=== PATIENT | female | born 2000 | race American Indian/Alaskan Native ===

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

== ENCOUNTER 2021-01-14 17:37 | Emergency (ER) | payer MEDICAID, OTHER | END 2021-01-14 18:30 | disposition left against medical advice (07) | LOC: ED 17:37 | DX: R21 Rash and other nonspecific skin eruption (principal); Z53.21 Procedure and treatment not carried out due to patient leaving prior to being seen by health care provider ==

== ENCOUNTER 2021-01-15 06:00 | Emergency (ER) | payer MEDICAID ==
[2021-01-15 07:24] LABS: Bilirubin,Urine NEG (Negative); Blood,Urine SM (Negative); Color,Urine Yellow (Yellow); Mucus,Urine 3+ /HPF
[2021-01-15 07:59] LABS: Basophils % (Auto) 0.7 % (0.0-1.8); Eosinophils # (Auto) 0.2 K/mm3 (0.0-0.4); Eosinophils % (Auto) 3.7 % (0.0-4.3); Hemoglobin 11.4 gm/dl (10.1-14.3); Lymphocytes # (Auto) 1.6 K/mm3 (1.2-5.4); Mean Corpuscular HGB Conc 33 % (30-34); Mean Corpuscular Volume 83 fl (79-97); Monocytes # (Auto) 0.7 K/mm3 (0.0-0.8); Monocytes % (Auto) 11.8 % (0.0-7.3); Platelet Count 400 K/mm3 (140-440); Red Cell Distribution Width 13.2 % (13.2-15.2)
[2021-01-15 08:34] LABS: Alanine Aminotransferase 7 units/L (7-56); Albumin 4.1 g/dL (3.9-5); Blood Urea Nitrogen 8 mg/dL (7-17); Calcium 9.2 mg/dL (8.4-10.2); Hemolysis Index 0
[2021-01-15 08:53] LABS: BUN/Creatinine Ratio 13
[2021-01-15] MEDS ORDERED: KETOROLAC 30 MG/1 ML INJ IV ONE (09:34)
--- NOTE | 2021-01-15 09:35 | Emergency Department Report ---
ED General Adult HPI - General Chief complaint: Abdominal Pain Stated complaint: RIGHT SIDE PAIN Time Seen by Provider: 01/15/21 09:24 Source: patient Mode of arrival: Ambulatory Limitations: No Limitations - History of Present Illness Initial comments: Patient is a 20-year-old female who presents emergency department for evaluation of intermittent crampy moderate right upper quadrant pain x5 days. Patient denies nausea vomiting diarrhea, denies any obvious correlation with eating. Patient denies dysuria, denies fever. Patient denies chest pain or shortness of breath. - Related Data Previous Rx's Medication Instructions Recorded Last Taken Type Ibuprofen [Motrin 600 MG tab] 600 mg PO Q8H PRN #30 tablet 01/01/18 Unknown Rx Hydrocortisone 1% [Hydrocortisone 1 applicatio TP TID #1 tube 01/15/21 Unknown Rx 1% CREAM] Allergies Allergy/AdvReac Type Severity Reaction Status Date / Time No Known Allergies Allergy Unverified 01/01/18 10:48 ED Review of Systems ROS: Stated complaint: RIGHT SIDE PAIN Other details as noted in HPI Comment: All other systems reviewed and negative ED Past Medical Hx - Past Medical History Previous Medical History?: No - Surgical History Past Surgical History?: No - Social History Smoking Status: Never Smoker Substance Use Type: None - Medications Home Medications: Home Medications Medication Instructions Recorded Confirmed Last Taken Type Ibuprofen [Motrin 600 MG tab] 600 mg PO Q8H PRN #30 tablet 01/01/18 Unknown Rx Hydrocortisone 1% [Hydrocortisone 1 applicatio TP TID #1 tube 01/15/21 Unknown Rx 1% CREAM] ED Physical Exam - General Limitations: No Limitations General appearance: alert, in no apparent distress - Head Head exam: Present: atraumatic, normocephalic - Eye Eye exam: Present: normal appearance - ENT ENT exam: Present: mucous membranes moist - Neck Neck exam: Present: normal inspection - Respiratory Respiratory exam: Present: normal lung sounds bilaterally. Absent: respiratory distress - Cardiovascular Cardiovascular Exam: Present: regular rate, normal rhythm. Absent: systolic murmur, diastolic murmur, rubs, gallop - GI/Abdominal GI/Abdominal exam: Present: soft, normal bowel sounds - Extremities Exam Extremities exam: Present: normal inspection - Back Exam Back exam: Present: normal inspection - Neurological Exam Neurological exam: Present: alert, oriented X3 - Psychiatric Psychiatric exam: Present: normal affect, normal mood - Skin Skin exam: Present: warm, dry, intact, normal color. Absent: rash ED Course Vital Signs 01/15/21 01/15/21 01/15/21 06:29 10:45 11:00 Temperature 98.3 F Pulse Rate 95 H 82 75 Respiratory 18 16 22 Rate Blood Pressure 124/82 108/79 108/79 O2 Sat by Pulse 100 99 99 Oximetry 01/15/21 11:15 Temperature Pulse Rate Respiratory 16 Rate Blood Pressure O2 Sat by Pulse 100 Oximetry - Reevaluation(s) Reevaluation #1: 01/15/21 19:35 Patient initially treated with Toradol 50 mg IV x1. Reevaluation #2: 01/15/21 11:15 Patient continuing to complain of abdominal pain despite reassuring ultrasound and lab work, consequently CT abdomen pelvis ordered. Reevaluation #3: 01/15/21 15:[address] abdomen pelvis, patient now states pain is resolved entirely. Abdomen soft, nontender. Discussed abnormal results of CT abdomen pelvis with patient including possible gynecologic findings, patient without pelvic complaints nor pelvic pain or pelvic tenderness. Patient nonetheless advised to follow-up with ADHESIVE BANDAGE MACHINE OPERATOR and given physical printout of CT read to facilitate follow-up. Patient given physical printout of ultrasound results and advised to follow-up with surgery, given information to do so. ED Medical Decision Making - Lab Data Result diagrams: 01/15/21 07:47 01/15/21 07:47 Labs 01/15/21 01/15/21 01/15/21 07:47 07:47 07:47 WBC 5.9 RBC 4.20 Hgb 11.4 Hct 35.0 MCV 83 MCH 27 L MCHC 33 RDW 13.2 Plt Count 400 Lymph % (Auto) 27.0 [place] % (Auto) 11.8 H Eos % (Auto) 3.7 Baso % (Auto) 0.7 Lymph # (Auto) 1.6 [place] # (Auto) 0.7 Eos # (Auto) 0.2 Baso # (Auto) 0.0 Seg Neutrophils % 56.8 Seg Neutrophils # 3.4 Sodium 139 Potassium 4.1 Chloride 103.6 Carbon Dioxide 29 Anion Gap 11 BUN 8 Creatinine 0.6 Estimated GFR > 60 BUN/Creatinine Ratio 13 Glucose 87 Calcium 9.2 Total Bilirubin 0.30 AST 16 ALT 7 Alkaline Phosphatase 65 Total Protein 7.8 Albumin 4.1 Albumin/Globulin Ratio 1.1 Lipase 13 HCG, Qual Negative Urine Color Urine Turbidity Urine pH Ur Specific [place] Urine Protein Urine Glucose (UA) Urine Ketones Urine Blood Urine Nitrite Urine Bilirubin Urine Urobilinogen Ur Leukocyte Esterase Urine WBC (Auto) Urine RBC (Auto) U Epithel Cells (Auto) Urine Mucus 01/15/21 Unknown WBC RBC Hgb Hct MCV MCH MCHC RDW Plt Count Lymph % (Auto) [place] % (Auto) Eos % (Auto) Baso % (Auto) Lymph # (Auto) [place] # (Auto) Eos # (Auto) Baso # (Auto) Seg Neutrophils % Seg Neutrophils # Sodium Potassium Chloride Carbon Dioxide Anion Gap BUN Creatinine Estimated GFR BUN/Creatinine Ratio Glucose Calcium Total Bilirubin AST ALT Alkaline Phosphatase Total Protein Albumin Albumin/Globulin Ratio Lipase HCG, Qual Urine Color Yellow Urine Turbidity Slightly-cloudy Urine pH 6.0 Ur Specific [place] 1.030 Urine Protein 30 mg/dl Urine Glucose (UA) Neg Urine Ketones Neg Urine Blood Sm Urine Nitrite Neg Urine Bilirubin Neg Urine Urobilinogen 2.0 Ur Leukocyte Esterase Tr Urine WBC (Auto) 18.0 H Urine RBC (Auto) 2.0 U Epithel Cells (Auto) 5.0 Urine Mucus 3+ Vital Signs 01/15/21 01/15/21 01/15/21 06:29 10:45 11:00 Temperature 98.3 F Pulse Rate 95 H 82 75 Respiratory 18 16 22 Rate Blood Pressure 124/82 108/79 108/79 O2 Sat by Pulse 100 99 99 Oximetry 01/15/21 11:15 Temperature Pulse Rate Respiratory 16 Rate Blood Pressure O2 Sat by Pulse 100 Oximetry - Radiology Data Radiology results: report reviewed LIMITED RUQ ABDOMINAL ULTRASOUND INDICATION / CLINICAL INFORMATION: RUQ pain. COMPARISON: No relevant prior imaging study available. FINDINGS: PANCREAS: Visualized portions of the pancreas are within normal limits. ABDOMINAL AORTA: N o significant abnormality. IVC: No significant abnormality. LIVER: The liver is normal in size. The liver demonstrates a normal echogenicity and morphology. PORTAL VEIN: Normal hepatopedal blood flow in the main portal vein. GALLBLADDER: There is gallbladder sludge. There is no cholelithiasis, gallbladder wall thickening, or pericholecystic fluid. BILE DUCTS: No significant abnormality. Common bile duct measures 2 mm. RIGHT KIDNEY: No significant abnormality visualized. FREE FLUID: None. ADDITIONAL FINDINGS: None. IMPRESSION: Gallbladder sludge without sonographic findings of cholecystitis. CT ABDOMEN AND PELVIS WITH CONTRAST INDICATION / CLINICAL INFORMATION: Right upper quadrant pain. TECHNIQUE: Axial CT images were obtained through the abdomen and pelvis after 100 cc Omnipaque [address] scans at this location are performed using CT dose reduction for ALARA by means of automated exposure control. COMPARISON: Right upper quadrant abdominal ultrasound performed today. FINDINGS: LOWER CHEST: No significant abnormality. LIVER: Scattered tiny cysts are noted without other significant abnormalities. GALLBLADDER: No significant abnormality. BILE DUCTS: No significant abnormality. PANCREAS: No significant abnormality. SPLEEN: No significant abnormality. ADRENALS: No significant abnormality. RIGHT KIDNEY / URETER: No significant abnormality. LEFT KIDNEY / URETER: No significant abnormality. STOMACH / SMALL BOWEL: Mildly dilated fluid-filled small bowel loops are seen along the pelvis. The remainder of the small bowel and stomach are unremarkable. COLON: No s ignificant abnormality. APPENDIX: No significant abnormality. PERITONEUM: No free fluid. No free air. No fluid collection. LYMPH NODES: No significant adenopathy. AORTA / ARTERIES: No significant abnormality. IVC / VEINS: No significant abnormality. URINARY BLADDER: No significant abnormality. REPR ODUCTIVE ORGANS: Dilated fluid-filled tubular structures along the pelvis appear continuous with the small bowel and likely represent small bowel loops rather than findings of hydrosalpinx/TOA. No other significant abnormality. ADDITIONAL FINDINGS: None. SKELETAL SYSTEM: No significant abnormality. IMPRESSION: 1. No acute abnormality of the right upper quadrant to explain the patient's pain. 2. Nonspecific mildly dilated probable small bowel loops along the pelvis, possibly representing enteritis. This entity is favored over an acute ACCREDITED LEGAL SECRETARY conditions such as hydrosalpinx/TOA. Please correlate with the clinical findings. Signer Name: Kwasi Thomas MD Signed: 01/15/2021 11:13 AM Workstation Name: [facility] Critical care attestation.: If time is entered above; I have spent that time in minutes in the direct care of this critically ill patient, excluding procedure time. ED Disposition Clinical Impression: Cholelithiasis, Abdominal pain, Enteritis Disposition: - TO HOME OR SELFCARE Is pt being admited?: No Condition: Stable Instructions: Cholelithiasis, Abdominal Pain (ED) Additional Instructions: Follow-up with ADHESIVE BANDAGE MACHINE OPERATOR in 1 to 2 days for reevaluation and to review abnormal CT abdomen pelvis. Follow-up with surgery in 1 to 2 days for reevaluation as you have gallstones which may require your gallbladder to be removed in the future. Alternatively, follow-up with primary care doctor 1 to 2 days for reevaluation. Return to the emergency department for worsening symptoms. Prescriptions: Hydrocortisone 1% [Hydrocortisone 1% CREAM] 1 applicatio TP TID #1 tube Referrals: YUVAL OWUSU DO [Staff Physician] - 3-5 Days PRIMARY CARE, [Primary Care Provider] - 3-5 Days
--- NOTE | 2021-01-15 10:47 | Ultrasound Report ---
LIMITED RUQ ABDOMINAL ULTRASOUND INDICATION / CLINICAL INFORMATION: RUQ pain. COMPARISON: No relevant prior imaging study available. FINDINGS: PANCREAS: Visualized portions of the pancreas are within normal limits. ABDOMINAL AORTA: No significant abnormality. IVC: No significant abnormality. LIVER: The liver is normal in size. The liver demonstrates a normal echogenicity and morphology. PORTAL VEIN: Normal hepatopedal blood flow in the main portal vein. GALLBLADDER: There is gallbladder sludge. There is no cholelithiasis, gallbladder wall thickening, or pericholecystic fluid. BILE DUCTS: No significant abnormality. Common bile duct measures 2 mm. RIGHT KIDNEY: No significant abnormality visualized. FREE FLUID: None. ADDITIONAL FINDINGS: None. IMPRESSION: Gallbladder sludge without sonographic findings of cholecystitis. Signer Name: Sebas Culp MD Signed: 01/15/2021 10:43 AM Workstation Name: [id number]
--- NOTE | 2021-01-15 12:17 | Cat Scan Report ---
CT ABDOMEN AND PELVIS WITH CONTRAST INDICATION / CLINICAL INFORMATION: Right upper quadrant pain. TECHNIQUE: Axial CT images were obtained through the abdomen and pelvis after 100 cc Omnipaque [address] scans at this location are performed using CT dose reduction for ALARA by means of automated exposure control. COMPARISON: Right upper quadrant abdominal ultrasound performed today. FINDINGS: LOWER CHEST: No significant abnormality. LIVER: Scattered tiny cysts are noted without other significant abnormalities. GALLBLADDER: No significant abnormality. BILE DUCTS: No significant abnormality. PANCREAS: No significant abnormality. SPLEEN: No significant abnormality. ADRENALS: No significant abnormality. RIGHT KIDNEY / URETER: No significant abnormality. LEFT KIDNEY / URETER: No significant abnormality. STOMACH / SMALL BOWEL: Mildly dilated fluid-filled small bowel loops are seen along the pelvis. The r emainder of the small bowel and stomach are unremarkable. COLON: No significant abnormality. APPENDIX: No significant abnormality. PERITONEUM: No free fluid. No free air. No fluid collection. LYMPH NODES: No significant adenopathy. AORTA / ARTERIES: No significant abnormality. IVC / VEINS: No significant abnormality. URINARY BLADDER: No significant abnormality. REPRODUCTIVE ORGANS: Dilated fluid-filled tubular structures along the pelvis appear continuous with the small bowel and likely represent small bowel loops rather than findings of hydrosalpinx/TOA. No o ther significant abnormality. ADDITIONAL FINDINGS: None. SKELETAL SYSTEM: No significant abnormality. IMPRESSION: 1. No acute abnormality of the right upper quadrant to explain the patient's pain. 2. Nonspecific mildly dilated probable small bowel loops along the pelvis, possibly representing ente ritis. This entity is favored over an acute E MAIL SYSTEM ADMINISTRATOR conditions such as hydrosalpinx/TOA. Please correlate with the clinical findings. Signer Name: Kwasi Thomas MD Signed: 01/15/2021 12:13 PM Workstation Name: [id number]
[2021-01-15 15:46] VITALS: BP 121/80
== END 2021-01-15 13:00 | disposition home or self-care (01) ==
LOC: ED 06:00
DX: K80.20 Calculus of gallbladder without cholecystitis without obstruction (principal); K52.9 Noninfective gastroenteritis and colitis, unspecified; R10.11 Right upper quadrant pain; Z79.1 Long term (current) use of non-steroidal anti-inflammatories (NSAID); Z79.899 Other long term (current) drug therapy
CPT/HCPCS: 36415; 74177; 76705; 80053; 81001; 83690; 84703; 85025; 87086; 96374; 99284; J1885; Q9967